=== PATIENT | male | born 1960 | race Caucasian/White ===

== ENCOUNTER 2016-10-17 09:13 | Emergency (ER) | payer SELFPAY ==
[~2016-10-17] VITALS: Ht 170.2 cm; Wt 102.0 kg
[2016-10-17 09:16] VITALS: BP 194/97; PULSE 70; RESP 17; TEMP 97.8; O2SAT 99
--- NOTE | 2016-10-17 09:41 | PD ---
HPI Chief Complaint: Back/ Neck Pain or Injury Time Seen by Provider: 09:23 Travel History International Travel<30 days: No Contact w/Intl Traveler<30days: No Traveled to known affect area: No History of Present Illness HPI This patient complains of back pain. He has right mid muscular back pain and says he can feel the muscle spasming at times. Duration is 2 days. He says it started when he lifted his girlfriend. There is been no injury or trauma to it. No urinary condoms or retention or neurologic complaint. He says that he drinks 6 beers daily. He occasionally doses off in the bed while in the middle of conversation. He denies drinking today. He denies sedating medication. He denies any drug use. Symptom severity is mild to moderate. PFSH Past Medical History Medical History: Denies Significant Hx Diminished Hearing: No Tetanus Vaccination: > 5 Years Influenza Vaccination: No Past Surgical History Other Surgery: Yes (EYES) Social History Alcohol Use: Yes (3-4 DAYS WEEKLY) Tobacco Use: Yes (1 PPD) Substance Use: No Allergies-Medications (Allergen,Severity, Reaction): Coded Allergies: Bee Sting (Verified Allergy, Severe, Anaphylaxis, 10/17/16) Penicillin (Verified Allergy, Unknown, 10/17/16) Reported Meds & Prescriptions Reported Meds & Active Scripts Active No Active Prescriptions or Reported Medications Review of Systems General / Constitutional: No: Fever HENT: No: Headaches Cardiovascular: No: Chest Pain or Discomfort Respiratory: No: Cough Physical Exam Narrative GASTROINTESTINAL: Abdomen soft, non-tender, nondistended. Positive bowel sounds. No hepato-splenomegaly, or palpable masses. No guarding. SKIN: Inspection shows no rash or ulcers. Palpation shows no induration or nodules. NEUROLOGICAL: Awake but drowsy. Pupils are equal round and reactive. Motor and sensory grossly within normal limits. Five out of 5 muscle strength in all muscle groups. Understandable speech. Back: No midline tenderness. No visible spasm but there is some muscle tenderness in the right mid act and a palpable knot there Data Data Last Documented VS Vital Signs Date Time Temp Pulse Resp B/P Pulse Ox O2 Delivery O2 Flow Rate FiO2 10/17/16 09:16 97.8 70 17 194/97 99 Room Air MDM Medical Decision Making Medical Screen Exam Complete: Yes Emergency Medical Condition: Yes Medical Record Reviewed: Yes Differential Diagnosis Back strain, sciatica, pinched nerve Narrative Course I have reviewed the patient's electronic medical record. Patient has never been to the ER before Patient does not have an objective neurologic deficit He seems under the influence of something He admits to alcohol abuse There is no mechanism of injury to suggest x-ray would be useful. His back pain seems definitely muscular in origin. Blood pressure is 164/95 I advised him to check and recorded daily and follow up with primary care Suggested [facility] alcohol rehabilitation counseling services Going to write him some Norflex to use as needed and I did warn her about sedation and using it with alcohol. I think this one is less sedating than other muscle relaxers. We'll mobilize prior to discharge Diagnosis Primary Impression: Spasm of back muscles Additional Impressions: Elevated blood pressure reading Heavy alcohol use Additional Instructions: The patient was advised to follow up with their physician and return if they worsen. The patient was warned about potential sedation for the medications they will receive on prescription. Check and record blood pressure daily Limit alcohol consumption Consider [facility] alcohol rehabilitation services Med/Other Pt SpecificInfo: Prescription(s) given Scripts No Active Prescriptions or Reported Meds Disposition: 01 DISCHARGE HOME Condition: Stable Albert Mai MD Oct 17, 2016 09:41
[2016-10-17] MEDS ORDERED: ORPH100T99 PO (09:42)
[2016-10-17 10:04] VITALS: BP 164/95
== END 2016-10-17 10:09 | disposition home or self-care (01) ==
LOC: PHED 09:13
DX: M62.830 Muscle spasm of back (principal); R03.0 Elevated blood-pressure reading, without diagnosis of hypertension; F17.210 Nicotine dependence, cigarettes, uncomplicated; F10.10 Alcohol abuse, uncomplicated; X50.0XXA Overexertion from strenuous movement or load, initial encounter; X50.9XXA Other and unspecified overexertion or strenuous movements or postures, initial encounter; Y93.9 Activity, unspecified; Y92.9 Unspecified place or not applicable; Y99.9 Unspecified external cause status
CPT/HCPCS: 99283

== ENCOUNTER 2017-03-04 09:04 | Emergency (ER) | payer SELFPAY ==
[~2017-03-04] VITALS: Ht 170.2 cm; Wt 98.1 kg
[~2017-03-04 09:04] MED LIST: ORPH100T99 PO
[2017-03-04 09:09] VITALS: BP_SYST 160; BP_SYST 180; BP_DIAS 122; BP_DIAS 125; PULSE 90; RESP 16; TEMP 98.3; O2SAT 96
[2017-03-04] MEDS ORDERED: ACETAMINOPHEN/HYDROcodone 325 MG/5 MG TAB PO ONE (09:30)
--- NOTE | 2017-03-04 09:55 | PD ---
HPI Chief Complaint: Injury Time Seen by Provider: 09:19 Travel History International Travel<30 days: No Contact w/Intl Traveler<30days: No Traveled to known affect area: No History of Present Illness HPI Is a 56-year-old male presents to the emergency department complaining of right ankle pain. It is more the medial right ankle. Nonradiating. Been persistent and constant. He states he slipped on wet tile last night. [place] like his right ankle rolled with forced inversion. He's had pain and swelling since then. Unable to really bear weight. No past medical history. No meds. No history of previous injuries. No other complaints. History Past Medical History Medical History: Denies Significant Hx Tetanus Vaccination: Unknown Influenza Vaccination: No Social History Alcohol Use: Yes (occasional) Tobacco Use: Yes (1 PPD) Allergies-Medications (Allergen,Severity, Reaction): Coded Allergies: Bee Sting (Verified Allergy, Severe, Anaphylaxis, 03/04/17) Penicillin (Verified Allergy, Unknown, 03/04/17) Reported Meds & Prescriptions Reported Meds & Active Scripts Active No Active Prescriptions or Reported Medications Review of Systems Except as stated in HPI: all other systems reviewed are Neg Physical Exam Narrative GENERAL: 56-year-old man, generally well-appearing, no acute distress. SKIN: Warm and dry. CARDIOVASCULAR: Warm and well perfused. RESPIRATORY: Normal rate and effort. MUSCULOSKELETAL: Focused examination of the right lower extremity reveals pain and swelling about the entire the right ankle. Significant pain and tenderness present at the medial malleolus. Pain with any attempted range of motion. The foot itself is also little bit swollen but there is no tenderness over the dorsum of the foot or the distal foot. Foot warm and well-perfused. Sensations intact. Good pulses. No pain on the proximal calf, no evidence of Maisonneuve injury or high ankle sprain on exam. NEUROLOGICAL: Awake and alert. No gross deficits. Data Data Last Documented VS Vital Signs Date Time Temp Pulse Resp B/P Pulse Ox O2 Delivery O2 Flow Rate FiO2 03/04/17 09:37 16 03/04/17 09:09 98.3 90 180/125 96 160/122 Orders Ankle, Complete (Prn2qfl) (03/04/17 ) Tibia/Fibula (Ap/Lat) (03/04/17 ) Acetamin-Hydrocod 325-5 Mg (Gays 5-325 (03/04/17 09:30) Support Splint (03/04/17 10:29) Fiberglass Short Leg Splint Ad (03/04/17 ) Fiberglass Sugartong Sp Ad Sl (03/04/17 ) [facility] Medical Decision Making Medical Screen Exam Complete: Yes Emergency Medical Condition: Yes Interpretation(s) My review of right ankle x-ray: Fracture of the distal fibula, medial malleolus , posterior malleolus. Differential Diagnosis Slip and fall, ankle injury, fracture, strain or sprain, other Narrative Course Medical decision making 56-year-old man with slip and fall, severe right ankle pain and swelling, x-ray shows distal fibular, as well as medial malleoli or fracture. Discussed with Maximo, for Dr. Owens with orthopedics, states the patient is comfortable, can be followed up as outpatient. Will likely need surgery. Diagnosis Primary Impression: Closed right ankle fracture Referrals: Masoud Owens MD 3 days Additional Instructions: Keep leg elevated above your heart to reduce swelling. Do not bear weight on your right leg. Follow-up with Dr. Owens this week for further evaluation. You will likely need surgery. Use crutches as directed. Take Lortab as needed for pain. Do not drink alcohol while taking Lortab. Med/Other Pt SpecificInfo: Prescription(s) given Scripts Hydrocodone-Acetaminophen (Lortab)5-325 Mg Tab1-2 Tab PO Q6H PRN (PAIN) #30 TAB Prov:Michael Jovel MD 03/04/17 Disposition: 01 DISCHARGE HOME Condition: Stable Michael Jovel MD Mar 04, 2017 09:55
--- NOTE | 2017-03-04 10:39 | RADHPO ---
EXAM DATE/TIME: 03/04/2017 09:51 [facility] COMPARISON: No previous studies available for comparison. INDICATIONS : Right medial ankle pain, slipped and fell MEDICAL HISTORY : None. SURGICAL HISTORY : None. ENCOUNTER: Initial ACUITY: 1 day PAIN SCORE: 8/10 LOCATION: Right medial ankle FINDINGS: There is a fracture of the distal tibia at the medial malleolus. Distal fibula is fractured, above t he tibial plafond. Talus is intact. There is a fracture to the posterior lip of the tibia. Proximal femur is intact. CONCLUSION: Trimalleolar fracture of the tibia and fibula. Talus is intact. I cannot entirely exclude a small intraarticular fragment medial tibiotalar joint. Ruiz Napoles MD FACR on March 04, 2017 at 10:21 Board Certified Radiologist. This report was verified electronically.
[2017-03-04] MEDS ORDERED: HYDR-3533 PO (10:41)
--- NOTE | 2017-03-04 10:52 | RADHPO ---
EXAM DATE/TIME: 03/04/2017 09:37 [facility] COMPARISON: No previous studies available for comparison. INDICATIONS : Right medial ankle pain, slipped and fell MEDICAL HISTORY : None SURGICAL HISTORY : None ENCOUNTER: Initial ACUITY: 1 day PAIN SCORE: 8/10 LOCATION: Right ankle FINDINGS: Again seen is the medial malleolus fracture and severely comminuted distal fibular fracture that exte nds above the tibial plafond. There is also a fracture of the posterior lip of the tibial plafond. There is widening of the anterior tibiotalar joint suggesting ligamentous disruption. Small intraarticular free fragment cannot be entirely excluded on the medial side of the ankle. CONCLUSION: Fracture as described above. Ruiz Napoles MD FACR on March 04, 2017 at 10:38 Board Certified Radiologist. This report was verified electronically.
[2017-03-04 10:59] VITALS: BP 162/101; PULSE 79; RESP 16; O2SAT 95
[2017-03-29] MEDS ORDERED: HYDR-3288 PO (07:16)
== END 2017-03-04 11:12 | disposition home or self-care (01) ==
LOC: PHED 09:04
DX: S82.851A Displaced trimalleolar fracture of right lower leg, initial encounter for closed fracture (principal); W01.0XXA Fall on same level from slipping, tripping and stumbling without subsequent striking against object, initial encounter; Y93.9 Activity, unspecified; Y92.9 Unspecified place or not applicable; Y99.8 Other external cause status
CPT/HCPCS: 29515; 73590; 73610; 99283; E0113

== ENCOUNTER → 2017-03-29 | Day surgery (SDC) | payer SELFPAY ==
[~2017-03-29] VITALS: Ht 170.2 cm; Wt 94.5 kg
[~2017-03-29] MED LIST changes: +*morphine SULFATE 8 MG/ML PERIprocedure ONLY ONE; +ACETAMINOPHEN/HYDROcodone 325 MG/7.5 MG TAB PO PRN; +CHLORHEXIDINE GLUCONATE 2 % 1 PACK (2 CLOTHS) TOPICAL PRN; +CLINDAMYCIN INJ 900 MG in SODIUM CHLORIDE 0.9% INJ 100 ML IV SCH; +CLINDAMYCIN PHOS 900 MG/6 ML VIAL ONE; +DEXAMETHASONE SOD PHOS 4 MG/ML VIAL ONE; +DO NOT ADM ANY ANTICOAGULANT DRUGS PRN; +FAMOTIDINE 20 MG/2 ML VIAL ONE; +GENTAMICIN SULFATE 80 MG/2 ML VIAL IRRIGATION ONE; +HYDR-3288 PO; +HYDR-3533 PO; +INSULIN HUMAN REGULAR 1,000 UNITS/10 ML VIAL SQ PRN; +LACTATED RINGER'S 1000 ML IV PRN; +METOPROLOL TARTRATE 25 MG TAB PO PRN; +MIDAZOLAM HCL 2 MG/2 ML VIAL ONE; +MORPHINE SULFATE 4 MG/ML INJ IV PUSH PRN; +ONDANSETRON HCL 4 MG/2 ML VIAL IV PUSH ONE; +ONDANSETRON HCL 4 MG/2 ML VIAL IVP PRN; -ORPH100T99 PO; +POVIDONE IODINE 5% (ANTISEPSIS KIT) 4 APPLICATIONS EACH NARE PRN; +PROPOFOL 200 MG/20 ML AMP IV ONE; +Post-op Orders (for Pharmacy) MISC XX ONE; +SODIUM CHLORID 0.9% 500 ML IV PRN; +SODIUM CHLORIDE 0.9% INJ 100 ML ONE; +VANCOMYCIN HCL 1000 MG VIAL OTHER ONE; +fentaNYL CITRATE 250 MCG/5 ML AMP ONE
[2017-03-29 05:56] VITALS: BP 163/103; PULSE 78; RESP 18; TEMP 98.6; O2SAT 95
--- NOTE | 2017-03-29 07:16 | EKG ---
Date Performed: 03/29/2017 Time Performed: 06:30:16 PTAGE: 56 years EKG: SINUS BRADYCARDIA BORDERLINE ECG NO PREVIOUS TRACING DOCTOR: Aba Ricci Interpretating Date/Time 03/29/2017 07:14:52
--- NOTE | 2017-03-29 08:52 | PD.OP ---
cc: Masoud Owens MD Operative Report Date of Surgery: Mar 29, 2017 Preoperative Diagnosis: Displaced right distal tibia & fibula fractures Postoperative Diagnosis: Procedure: Open reduction internal fixation right distal tibia and fibula fractures Anesthesia: Gen. Surgeon: Maosud Owens Aoc Director Intelligence Officer(s): REBEKAH Ponce PA-C The surgical procedure was assisted by my physician assistant case manager. My P.A. presence was necessary throughout this case for the manipulation and positioning of the surgical extremity. My P.A. was assisting me throughout the duration of this procedure. The skill set of a physician assistant case manager was medically necessary to complete this procedure. During the surgical case the surgical training specialist was working at the back table and the physician assistant case manager was directly assisting me. Operation and Findings: Patient was seen and evaluated preoperatively and found to have a displaced right distal tibia and fibula fracture. Informed consent was obtained after a detailed discussion of risk and benefits of surgery. The operative site was marked. Patient was brought to the OR, placed on the OR table, and given IV sedation and general endotracheal anesthesia. IV antibiotics were given preoperatively. A timeout procedure was performed. The left leg was prepped with alcohol followed by Hibiclens and draped in the usual sterile fashion. Attention was turned towards the distal fibula. A 5 inch incision was made over the distal fibula. The subcutaneous tissue was dissected with Bovie. The fracture site was visualized. The fracture site was cleaned with curets. His injury was approximately 4 weeks ago. There was significant fracture callus formation present. The fracture was mobilized. The fracture was now reduced. K-wires were used to h old provisional fixation. A Synthes one third tubular plate was selected. The plate was provisionally held to bone with K-wires. 3.5 cortical screws were used to compress the plate to bone. Multiple screws were placed above and below the fracture. Next attention was turned towards the medial malleolus. The medial malleolus supposed through a 3 cm incision. Saphenous vein was retracted. Fracture was visualized. Fracture was cleaned with curettes. Fracture was gently mobilized. Fracture was now reduced and keyed into anatomic alignment. K wires were used to hold provisional fixation. 2 guidepins for the 4.0 cannulated screws were placed in a retrograde fashion across the fracture. Fluoroscopy was used to confirm guidepin placement. Cannulated drill was placed over the guidepin. 2 appropriate length screws were now placed. Good compression was applied. Fluoroscopy confirmed well aligned fracture with well- placed hardware. Next attention was turned towards the anterior lateral distal tibia. Soft tissue was retracted anteriorly. Care was taken to avoid injury to neurovascular structures. The anterolateral fragment of articular surface was mobilized. There was fracture callus formation. The fracture fragment was carefully reduced. K wires were used to hold provisional fixation. Fluoroscopy confirmed well aligned fracture. A Synthes 2.7 plate was contoured to fit the anterolateral tibia. Plate was provisionally held the bone with K wires. 2.7 cortical screws were used compress plate to bone. Multiple screws were placed above and below fracture. Next, attention was turned to the syndesmosis. The syndesmosis was stressed. There was clear widening of the syndesmosis with external rotation of the ankle. The syndesmosis was now held in a reduced position with the ankle in neutral position. Two Synthes 4.0 cortical screws were now placed through the fibula plate into the tibia. Fluoroscopy confirmed appropriate screw placement with well-aligned syndesmosis. Incisions were thoroughly irrigated. The subcutaneous tissue was closed with 3-0 PDS and the skin was closed with 3-0 nylon. Sterile dressings were applied. A well molded well-padded splint was applied. The patient was transferred to Recovery in stable condition. Needle and sponge counts were correct. Masoud Owens MD Mar 29, 2017 08:52
[2017-03-29 11:50] VITALS: BP 135/73; PULSE 57; RESP 16; TEMP 97.9; O2SAT 96
--- NOTE | 2017-03-29 15:31 | RADRPT ---
EXAM DATE/TIME: 03/29/2017 08:38 [facility] COMPARISON: No previous studies available for comparison. INDICATIONS : Open reduction internal fixation right ankle. MEDICAL HISTORY : None. SURGICAL HISTORY : None. ENCOUNTER: Initial ACUITY: 1 day PAIN SCORE: Non-responsive. LOCATION: Right Ankle. FINDINGS: Plate is seen bridging the fibular fracture. Plate and screws are seen bridging the tibial fracture. Alignment is anatomic. CONCLUSION: Anatomic alignment. Ruiz Napoles MD FACR on March 29, 2017 at 15:19 Board Certified Radiologist. This report was verified electronically.
== END | disposition home or self-care (01) ==
LOC: HSDC 05:12
PROVIDERS: ATTEND Orthopaedic Surgery Orthopaedic Trauma
DX: S82.401A Unspecified fracture of shaft of right fibula, initial encounter for closed fracture (principal); S82.201A Unspecified fracture of shaft of right tibia, initial encounter for closed fracture; R00.1 Bradycardia, unspecified
CPT/HCPCS: 01480; 27828; 73600; 76000; 93005; 97163; C1713; G8987; G8988; J1100; J1580; J2250; J2270; J2405; J3010; J3370; J7120

== ENCOUNTER 2017-06-27 09:46 | Emergency (ER) | payer SELFPAY ==
[~2017-06-27] VITALS: Ht 170.2 cm; Wt 89.0 kg
[~2017-06-27 09:46] MED LIST changes: -*morphine SULFATE 8 MG/ML PERIprocedure ONLY ONE; -ACETAMINOPHEN/HYDROcodone 325 MG/7.5 MG TAB PO PRN; -CHLORHEXIDINE GLUCONATE 2 % 1 PACK (2 CLOTHS) TOPICAL PRN; -CLINDAMYCIN INJ 900 MG in SODIUM CHLORIDE 0.9% INJ 100 ML IV SCH; -CLINDAMYCIN PHOS 900 MG/6 ML VIAL ONE; -DEXAMETHASONE SOD PHOS 4 MG/ML VIAL ONE; -DO NOT ADM ANY ANTICOAGULANT DRUGS PRN; -FAMOTIDINE 20 MG/2 ML VIAL ONE; -GENTAMICIN SULFATE 80 MG/2 ML VIAL IRRIGATION ONE; -HYDR-3533 PO; -INSULIN HUMAN REGULAR 1,000 UNITS/10 ML VIAL SQ PRN; -LACTATED RINGER'S 1000 ML IV PRN; -METOPROLOL TARTRATE 25 MG TAB PO PRN; -MIDAZOLAM HCL 2 MG/2 ML VIAL ONE; -MORPHINE SULFATE 4 MG/ML INJ IV PUSH PRN; -ONDANSETRON HCL 4 MG/2 ML VIAL IV PUSH ONE; -ONDANSETRON HCL 4 MG/2 ML VIAL IVP PRN; -POVIDONE IODINE 5% (ANTISEPSIS KIT) 4 APPLICATIONS EACH NARE PRN; -PROPOFOL 200 MG/20 ML AMP IV ONE; -Post-op Orders (for Pharmacy) MISC XX ONE; -SODIUM CHLORID 0.9% 500 ML IV PRN; -SODIUM CHLORIDE 0.9% INJ 100 ML ONE; -VANCOMYCIN HCL 1000 MG VIAL OTHER ONE; -fentaNYL CITRATE 250 MCG/5 ML AMP ONE
[2017-06-27] MEDS ORDERED: GADODIAMIDE PF 287 MG/ML 20 ML VIAL (for RAD MRI) IVCONTRAST ONE (09:47)
[2017-06-27 10:03] VITALS: BP 168/103; PULSE 75; RESP 16; TEMP 97.9; O2SAT 97
--- NOTE | 2017-06-27 10:22 | PD ---
HPI Chief Complaint: Eye Problems/Injury Time Seen by Provider: 09:54 Travel History International Travel<30 days: No Contact w/Intl Traveler<30days: No Traveled to known affect area: No History of Present Illness HPI The patient is a 56-year-old male who presents to the emergency department for loss of vision of the right eye. The patient notes a history of difficulty with vision of the left eye, does wear glasses, however, normally has decent vision of the right eye. The patient states he started to lose vision of the right eye yesterday. The patient states the vision of the right eye was "foggy "and then he started to see "dark hairs" when he would lay backwards or sit forward. The patient felt like there was a "glob of blood "that would creep down the right eye when he would lay backwards. He denies any history of previous retinal detachments. He also complains of numbness and tingling to the top of the head which is been intermittent and chronic. The patient does not currently have a primary physician or an supervisor fishing. PFSH Past Medical History Diminished Hearing: No Medical other: Yes (LEFT EYE LEGALLY BLIND) Immunizations Current: Yes Tetanus Vaccination: > 5 Years Influenza Vaccination: No Past Surgical History Body Medical Devices: wires and screws in left knee Other Surgery: Yes (EYES) Social History Alcohol Use: No (FORMER ) Tobacco Use: Yes (1 PPD) Substance Use: No Allergies-Medications (Allergen,Severity, Reaction): Coded Allergies: bee venom protein (honey bee) (Unverified Allergy, Severe, Anaphylaxis, ) penicillin G (Unverified Allergy, Unknown, 06/27/17) Reported Meds & Prescriptions Reported Meds & Active Scripts Active No Active Prescriptions or Reported Medications Review of Systems Except as stated in HPI: all other systems reviewed are Neg Eyes: Positive: Blurred Vision, Visual changes, Blindness, No: Photophobia, Drainage, Redness, Foreign Body Sensation, Pain HENT: No: Headaches, Lightheadedness Cardiovascular: No: Chest Pain or Discomfort Respiratory: No: Shortness of Breath Gastrointestinal: No: Nausea, Vomiting, Abdominal Pain Physical Exam Narrative GENERAL: Awake, alert, nontoxic-appearing 56-year-old male who appears his stated age and is in no acute respiratory distress. SKIN: Focused skin assessment warm/dry. HEAD: Atraumatic. Normocephalic. EYES: Pupils equal and round. Pupils are 4 mm bilateral and reactive. The patient is able to see fingers at a distance of 2 feet without difficulty. Extraocular muscles are intact. Left funduscopic examination is unremarkable. Funduscopic examination reveals milky white appearance the central aspect of the retina. After dilation the patient's right eye the funduscopic examination was repeated, there does appear to be a large white milky type central lesion that extends from the superior to the inferior aspect. The lateral aspect is erythematous. ENT: No nasal bleeding or discharge. Mucous membranes pink and moist. NECK: Trachea midline. No JVD. CARDIOVASCULAR: Regular rate and rhythm. No murmur appreciated. RESPIRATORY: No accessory muscle use. Clear to auscultation. Breath sounds equal bilaterally. GASTROINTESTINAL: Abdomen soft, non-tender, nondistended. MUSCULOSKELETAL: No obvious deformities. No clubbing. No cyanosis. No edema. NEUROLOGICAL: Awake and alert. No obvious cranial nerve deficits. Motor grossly within normal limits. Normal speech. Nonfocal. Oriented 4. PSYCHIATRIC: Appropriate mood and affect; insight and judgment normal. Data Data Last Documented VS Vital Signs Date Time Temp Pulse Resp B/P (MAP) Pulse Ox O2 Delivery O2 Flow Rate FiO2 06/27/17 12:31 54 16 168/85 (112) 97 Room Air 06/27/17 10:03 97.9 Orders Orders Mri Brain W/O Contrast (06/27/17 ) Mri Orbits W&W/O Contrast (06/27/17 ) Complete Blood Count With Diff (06/27/17 10:16) Basic Metabolic Panel (Bmp) (06/27/17 10:16) Act Partial Throm Time (Ptt) (06/27/17 10:16) Prothrombin Time / Inr (Pt) (06/27/17 10:16) Atropine 1% Opth Soln (Isopto Atropine 1 (06/27/17 10:45) Gadodiamide Pf Inj (Omniscan Pf Inj) (06/27/17 09:47) Labs Laboratory Tests Test 06/27/17 10:20 White Blood Count 6.7 TH/MM3 Red Blood Count 4.73 MIL/MM3 Hemoglobin 14.5 GM/DL Hematocrit 43.4 % Mean Corpuscular Volume 91.8 FL Mean Corpuscular Hemoglobin 30.7 PG Mean Corpuscular Hemoglobin Concent 33.4 % Red Cell Distribution Width 13.0 % Platelet Count 178 TH/MM3 Mean Platelet Volume 8.6 FL Neutrophils (%) (Auto) 71.2 % Lymphocytes (%) (Auto) 22.4 % Monocytes (%) (Auto) 4.3 % Eosinophils (%) (Auto) 1.2 % Basophils (%) (Auto) 0.9 % Neutrophils # (Auto) 4.7 TH/MM3 Lymphocytes # (Auto) 1.5 TH/MM3 Monocytes # (Auto) 0.3 TH/MM3 Eosinophils # (Auto) 0.1 TH/MM3 Basophils # (Auto) 0.1 TH/MM3 CBC Comment DIFF FINAL Differential Comment Prothrombin Time 10.7 SEC Prothromb Time International Ratio 1.0 RATIO Activated Partial Thromboplast Time 26.6 SEC Blood Urea Nitrogen 9 MG/DL Creatinine 0.79 MG/DL Random Glucose 93 MG/DL Calcium Level 9.0 MG/DL Sodium Level 140 MEQ/L Potassium Level 3.9 MEQ/L Chloride Level 104 MEQ/L Carbon Dioxide Level 30.8 MEQ/L Anion Gap 5 MEQ/L Estimat Glomerular Filtration Rate 102 ML/MIN MDM Medical Decision Making Medical Screen Exam Complete: Yes Emergency Medical Condition: Yes Medical Record Reviewed: Yes Interpretation(s) Last Impressions Orbit MRI 06/27/17 0000 Signed Impressions: Service Date/Time: May 11:44 - CONCLUSION: 1. Negative examination. Jayjay Napoles MD Brain MRI 06/27/17 0000 Signed Impressions: Service Date/Time: May 11:44 - CONCLUSION: 1. Small amount of fluid within the ethmoid air cells. 2. Scattered areas of increased T2 signal the white matter consistent with mild microvascular ischemic demyelinative change. 3. No findings to indicate acute cortical infarct identified. Jayjay Napoles MD Laboratory Tests Test 06/27/17 10:20 White Blood Count 6.7 TH/MM3 Red Blood Count 4.73 MIL/MM3 Hemoglobin 14.5 GM/DL Hematocrit 43.4 % Mean Corpuscular Volume 91.8 FL Mean Corpuscular Hemoglobin 30.7 PG Mean Corpuscular Hemoglobin Concent 33.4 % Red Cell Distribution Width 13.0 % Platelet Count 178 TH/MM3 Mean Platelet Volume 8.6 FL Neutrophils (%) (Auto) 71.2 % Lymphocytes (%) (Auto) 22.4 % Monocytes (%) (Auto) 4.3 % Eosinophils (%) (Auto) 1.2 % Basophils (%) (Auto) 0.9 % Neutrophils # (Auto) 4.7 TH/MM3 Lymphocytes # (Auto) 1.5 TH/MM3 Monocytes # (Auto) 0.3 TH/MM3 Eosinophils # (Auto) 0.1 TH/MM3 Basophils # (Auto) 0.1 TH/MM3 CBC Comment DIFF FINAL Differential Comment Prothrombin Time 10.7 SEC Prothromb Time International Ratio 1.0 RATIO Activated Partial Thromboplast Time 26.6 SEC Blood Urea Nitrogen 9 MG/DL Creatinine 0.79 MG/DL Random Glucose 93 MG/DL Calcium Level 9.0 MG/DL Sodium Level 140 MEQ/L Potassium Level 3.9 MEQ/L Chloride Level 104 MEQ/L Carbon Dioxide Level 30.8 MEQ/L Anion Gap 5 MEQ/L Estimat Glomerular Filtration Rate 102 ML/MIN Differential Diagnosis Differential diagnoses includes retinal detachment, amaurosis fugax, lens detachment, central artery occlusion, central retinal vein occlusion. Narrative Course IV was established, labs are drawn and sent, and the patient was placed on cardiac telemetry monitoring and continuous pulse oximetry monitoring. MRI of the orbits and the brain were obtained. There appeared to be an abnormality on funduscopic examination with the patient had a milky like appearance to the central aspect of the retina, therefore, one drop of atropine was applied to the right eye. Funduscopic examination was repeated which continues to reveal the milky-type appearance to the central retina with erythema on the lateral aspect. There was no supervisor fishing economic development coordinator for [facility]. I did discuss the patient with the supervisor fishing, Dr. Gan who is located in [place], but was not economic development coordinator. He was headed to the airport in [place], however, did advise me to call [phone] to see if the patient could be seen in the office today. I did call the office and spoke with Rossana who advised us to send the demographics to fax number [phone]. She did advise the patient would need to pay via [employer] or [employer] upon arrival if he wanted to be evaluated as he does not have insurance and they are not on-call. Therefore, I had a discussion with the patient when he returned from [facility] in regards to see an supervisor fishing in [place] 1 PM, however, he would be responsible for payment. The patient does not believe he would be able to afford to see the supervisor fishing. I then offered to call several different transfer centers including [place], [place], and [place] to evaluate if there supervisor fishing to be able to evaluate the patient. However, the patient initially did not want to be transferred to another center. I advised the patient to think about options as he may develop blindness out of the right eye or worsening vision if she is not seen by an supervisor fishing in a timely manner. The patient states he would like to be discharged and follow-up with ophthalmology as an outpatient. I have advised them to follow-up with ophthalmology as soon as possible. He will be provided a copy of his MRI results at discharge. Diagnosis Primary Impression: Central retinal artery occlusion of right eye Additional Instructions: Follow-up with ophthalmology. Please provide a patient a copy of his MRI results at discharge. Return if symptoms worsen or progress. Med/Other Pt SpecificInfo: No Change to Meds Scripts No Active Prescriptions or Reported Meds Disposition: 01 DISCHARGE HOME Condition: Stable Jeremias Malone MD Jun 27, 2017 10:22
[2017-06-27 10:29] LABS: AUTOMATED NEUTROPHIL # 4.7 TH/MM3 (1.8-7.7); BASOPHIL # 0.1 TH/MM3 (0-0.2); BASOPHIL % 0.9 % (0.0-2.0); EOSINOPHIL # 0.1 TH/MM3 (0-0.4); EOSINOPHIL % 1.2 % (0.0-4.0); HEMATOCRIT 43.4 % (39.0-51.0); HEMO FLAGS DIFF FINAL; LYMPH % 22.4 % (9.0-44.0); LYMPHOCYTE # 1.5 TH/MM3 (1.0-4.8); MEAN CELL VOLUME 91.8 FL (80.0-100.0); MEAN CORPUSCULAR HEMOGLOBIN 30.7 PG (27.0-34.0); MEAN CORPUSCULAR HGB CONC 33.4 % (32.0-36.0); MONO % 4.3 % (0.0-8.0); NEUT % 71.2 % (16.0-70.0); PLATELET COUNT 178 TH/MM3 (150-450); RED BLOOD COUNT 4.73 MIL/MM3 (4.50-5.90); WHITE BLOOD COUNT 6.7 TH/MM3 (4.0-11.0)
[2017-06-27] MEDS ORDERED: ATROPINE SULFATE 1% OPHT SOLN 2 ML BTL RIGHT EYE ONE (10:30)
[2017-06-27 10:41] LABS: POTASSIUM 3.9 MEQ/L (3.5-5.1)
[2017-06-27 10:44] LABS: BICARBONATE 30.8 MEQ/L (21.0-32.0)
[2017-06-27 10:45] LABS: APTT (PATIENT) 26.6 SEC (24.3-30.1); PROTHROMBIN TIME - PATIENT 10.7 SEC (9.8-11.6)
[2017-06-27] MEDS ORDERED: ATROPINE SULFATE 1% OPHT SOLN 5 ML BTL RIGHT EYE ONE (10:45)
[2017-06-27 12:31] VITALS: BP 168/85; PULSE 54; RESP 16; O2SAT 97
--- NOTE | 2017-06-27 13:14 | RADRPT ---
EXAM DATE/TIME: 06/27/2017 11:44 [facility] COMPARISON: No previous studies available for comparison. INDICATIONS : CVA. Right eye floaters and top of head tingling. MEDICAL HISTORY : Blind in left eye. SURGICAL HISTORY : Right eye surgery to fix cross eye and right leg. ENCOUNTER: Initial ACUITY: 3 day PAIN SCORE: 0/10 LOCATION: Head. TECHNIQUE: Multiplanar, multisequence MRI of the brain was performed without contrast. FINDINGS: CEREBRUM: The ventricles are normal for age. No evidence of midline shift, mass lesion, hemorrhage or acute in farction. No extraaxial fluid collections are seen. The pituitary gland and suprasellar cistern are normal in configuration. WHITE MATTER: There are some scattered areas of increased T2 signal most consistent with mild microvascular ischemi c demyelinative change. No significant signal abnormalities are seen in the white matter. POSTERIOR FOSSA: The cerebellum and brainstem are intact. The 4th ventricle is midline. The cerebellopontine angle is unremarkable. The cerebellar tonsils are normal in position. DIFFUSION IMAGING: No focal areas of restricted diffusion are seen. No evidence of acute infarction. EXTRACRANIAL: The orbits appear intact. Dedicated imaging through the orbits is pending. There is a small amount of fluid within the ethmoid air cells.. CONCLUSION: 1. Small amount of fluid within the ethmoid air cells. 2. Scattered areas of increased T2 signal the white matter consistent with mild microvascular ischemi c demyelinative change. 3. No findings to indicate acute cortical infarct identified. Jayjay Napoles MD on June 27, 2017 at 13:10 Board Certified Radiologist. This report was verified electronically.
--- NOTE | 2017-06-27 13:20 | RADRPT ---
EXAM DATE/TIME: 06/27/2017 11:44 [facility] COMPARISON: No previous studies available for comparison. INDICATIONS : Right eye vision trouble, seeing floaters and blurred vision. CONTRAST: 17 cc Omniscan (gadodiamide) IV MEDICAL HISTORY : Blind in left eye. SURGICAL HISTORY : Right eye surgery for cross eye and right leg surgery. ENCOUNTER: Initial ACUITY: 3 day PAIN SCORE: 0/10 LOCATION: Head. TECHNIQUE: Multiplanar, multisequence MRI examination was performed. FINDINGS: PRESEPTAL: The preseptal soft tissues are normal thickness. GLOBES: Normal shape without wall thickening. The lens is grossly intact. EXTRAOCULAR MUSCLES: Symmetric and normal thickness. ORBITAL ENCINAS: Intact. The greater wing of the sphenoid is intact. OPTIC NERVES: Normal size. The optic canal is not enlarged. The retroconal fat is normal in appearance. LACRIMAL GLANDS: No evidence of mass. RETROAPICAL REGION: The optic chiasm is grossly intact. The visualized portion of the cavernous sinus and brainstem is i ntact. CONCLUSION: 1. Negative examination. Jayjay Napoles MD on June 27, 2017 at 13:16 Board Certified Radiologist. This report was verified electronically.
== END 2017-06-27 14:24 | disposition home or self-care (01) ==
LOC: PHED 09:46
DX: H34.11 Central retinal artery occlusion, right eye (principal); F17.200 Nicotine dependence, unspecified, uncomplicated
CPT/HCPCS: 70543; 70551; 80048; 85025; 85610; 85730; 99285; A9579

== ENCOUNTER 2017-07-18 11:34 | Observation (INO) | payer SELFPAY ==
[~2017-07-18] VITALS: Ht 172.7 cm; Wt 86.0 kg
[2017-07-18 11:36] VITALS: BP 182/97; PULSE 78; RESP 14; TEMP 97.8; O2SAT 97
--- NOTE | 2017-07-18 13:31 | PD ---
HPI Chief Complaint: Eye Problems/Injury Time Seen by Provider: 13:24 Travel History International Travel<30 days: No Contact w/Intl Traveler<30days: No Traveled to known affect area: No History of Present Illness HPI 86-year-old male presents to the emergency department, sent by Dr. Burgess, director of clinical services, for possible detached retina and surgery today. He's been having visual disturbances of the right eye the past 3 weeks. Reports blurry vision and seeing shadows. He was seen by Dr. Burgess this morning in his office and was told to come to the emergency department. Denies eye pain. Denies fever, vomiting. His pupils are dilated from his examination by Dr. Burgess this morning. No known aggravating or relieving factors. Has no other medical complaints. Allergies to bee stings and penicillin. No other modifying factors or associated signs and symptoms. PFSH Past Medical History Diminished Hearing: No Immunizations Current: Yes Past Surgical History Body Medical Devices: wires and screws in left knee Other Surgery: Yes (EYES) Social History Alcohol Use: No (FORMER ) Tobacco Use: Yes (1 PPD) Substance Use: No Allergies-Medications (Allergen,Severity, Reaction): Coded Allergies: bee venom protein (honey bee) (Unverified Allergy, Severe, Anaphylaxis, ) penicillin G (Unverified Allergy, Unknown, 06/27/17) Reported Meds & Prescriptions Reported Meds & Active Scripts Active No Active Prescriptions or Reported Medications Review of Systems Except as stated in HPI: all other systems reviewed are Neg Physical Exam Narrative GENERAL: Well-nourished, well-developed male patient, in no acute distress SKIN: Warm and dry. HEAD: Atraumatic. Normocephalic. EYES: Pupils equal and round and dilated at this time. No scleral icterus. No injection or drainage. ENT: Mucosa pink and moist. Airway patent. NECK: Trachea midline. CARDIOVASCULAR: Regular rate. RESPIRATORY: No accessory muscle use. GASTROINTESTINAL: Rounded. MUSCULOSKELETAL: No obvious deformities. No clubbing. No cyanosis. No edema. NEUROLOGICAL: Awake and alert. Oriented 3. No obvious cranial nerve deficits. Motor grossly within normal limits. Normal speech. PSYCHIATRIC: Appropriate mood and affect; insight and judgment normal. Data Data Last Documented VS Vital Signs Date Time Temp Pulse Resp B/P (MAP) Pulse Ox O2 Delivery O2 Flow Rate FiO2 07/18/17 11:36 97.8 78 14 182/97 (125) 97 Orders Orders Basic Metabolic Panel (Bmp) (07/18/17 13:32) Complete Blood Count With Diff (07/18/17 13:32) Prothrombin Time / Inr (Pt) (07/18/17 13:32) Act Partial Throm Time (Ptt) (07/18/17 13:32) Iv Access Insert/Monitor (07/18/17 13:32) NPO (07/18/17 13:32) Sodium Chloride 0.9% Flush (Ns Flush) (07/18/17 13:45) Consult Ophthalmology (07/18/17 ) Place In Observation (07/18/17 ) Vital Signs (Adult) Q4H (07/18/17 13:52) Activity Bed Rest (07/18/17 13:52) Diet Npo (07/18/17 Lunch) Admit Order (Ed Use Only) (07/18/17 13:51) MDM Medical Decision Making Medical Screen Exam Complete: Yes Emergency Medical Condition: Yes Medical Record Reviewed: Yes Differential Diagnosis Detached retina Narrative Course 56-year-old male sent by Dr. Burgess, director of clinical services to be admitted for surgery for suspected detach retina. Call placed to Dr. Burgess, director of clinical services. 1330: I talked to Dr. Burgess, director of clinical services, and he is recommending the patient to be admitted for surgery tonight. He would like us CBC, BMP, and coags drawn. He will fax and preop orders. He would like patient admitted to medical with a consult to him. Orders entered. Call placed to admit Ruth Ann 1353: Spoke with Dr. Chen, resident M.DJone and report was given for admission. Physician Communication Physician Communication Dr. Burgess, director of clinical services; Dr. Chen, Resident MD Diagnosis Primary Impression: Detached retina, right Admitting Information Admitting Physician Requests: Observation Scripts No Active Prescriptions or Reported Meds Kelli Beatty Jul 18, 2017 13:31
[2017-07-18] MEDS ORDERED: SODIUM CHLORIDE 0.9% FLUSH 10 ML FLUSH IV FLUSH PRN ×2 (13:45→15:00)
--- NOTE | 2017-07-18 14:34 | HHI.HP ---
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 Patient states he had blurry vision of his right eye starting about 3 weeks ago and was seen in the ED at that time as well. He endorses seeing "black hairs" and black dots in his vision about 3 weeks ago as well which lasted for a week. This has since resolved but he has continued to have blurry vision with his right eye. He states the vision in his left eye when he closes his right eye has been fine. He denies eye pain or double vision. He also reports seeing an aleksandra hue color with his right eye over this past 3 weeks. He denies any trauma or history of trauma to the eye. He denies any falls recently. Denies gait disturbances, headaches, N/V, changes in hearing. Patient was seen here in the ED on 2016 due to loss of vision of his right eye. An MRI of his orbits at that time were obtained which were normal. Patient was given choices at this visit of being transferred to a different center to [place] or [place] but declined and states he wanted to be discharged to / with ophthalmology as an outpatient. Patient states the first time he has seen Dr. Burgess was earlier today. (Bert Montemayor MD R2) Review of Systems Constitutional: DENIES: Fever, Chills, Dizziness Eyes: COMPLAINS OF: Blurred vision, DENIES: Diplopia, Eye pain, Double Vision Ears, nose, mouth, throat: DENIES: Tinnitus Respiratory: DENIES: Cough, Wheezing, Shortness of breath Cardiovascular: DENIES: Chest pain, Palpitations, Lower Extremity Edema Gastrointestinal: DENIES: Abdominal pain, Constipation, Diarrhea, Nausea, Vomiting Genitourinary: DENIES: Hematuria, Dysuria Neurologic: DENIES: Abnormal gait, Headache, Localized weakness (Bert Montemayor MD R2) Past Family Social History Past Medical History Amblyopia as a child Past Surgical History Corrective eye surgery as a child for amblyopia L kneecap surgery ~1998 ORIF of right distal tibia and fibula fractures on 03/29/2017 (Bert Montemayor MD R2) Allergies: Coded Allergies: bee venom protein (honey bee) (Unverified Allergy, Severe, Anaphylaxis, ) penicillin G (Unverified Allergy, Unknown, 06/27/17) Family History Mother: still alive, 74 yo, healthy Father: HTN, still alive, 77 yo Social History Tobacco: 1/2 PPD for about 40 years Etoh: denies in the past 6 months, denies any history of heavy drinking Illicit drug use: denies Lives alone (Bert Montemayor MD R2) Physical Exam Vital Signs Vital Signs Date Time Temp Pulse Resp B/P (MAP) Pulse Ox O2 Delivery O2 Flow Rate FiO2 07/18/17 11:36 97.8 78 14 182/97 (125 97 Physical Exam GENERAL: NAD, lying comfortably in bed NEURO: Alert. Normal speech. With exception of eyes due to pupils being dilated , rip sawyer tested and intact. Motor grossly normal. Strength 5/5 throughout. Sensation intact to light touch. SKIN: Warm and dry. No rashes or erythema. HEAD: Normocephalic. Atraumatic. EYES: Pupils dilated, equal round and reactive to light and accommodation. EOMI. Able to make out objects placed in front of his face however not always able to identify number of fingers being held up. No injection or drainage. Conjunctive white. No obvious abnormality seen on funduscopic examination bilaterally. ENT: No nasal drainage. Moist mucous membranes. No oral ulcers or lesions. NECK: Supple, trachea midline. No JVD. CARDIOVASCULAR: Regular rate and rhythm without murmurs, rubs, or gallops. Peripheral pulses 2+. Capillary refill < 2 seconds. RESPIRATORY: Breath sounds clear to auscultation and equal bilaterally, without wheezes, rales, or rhonchi. No accessory muscle use. GASTROINTESTINAL: Abdomen soft, nontender, nondistended, normal BS. MUSCULOSKELETAL: No lower extremity edema. Normal range of motion. BACK: Nontender without obvious deformity. (Bert Montemayor MD R2) Caprini VTE Risk Assessment Caprini VTE Risk Assessment: No/Low Risk (score <= 1) Caprini Risk Assessment Model Point Value = 1 Point Value = 2 Point Value = 3 Point Value = 5 Age 41-60 Minor surgery BMI > 25 kg/m2 Swollen legs Varicose veins or History of unexplained or recurrent spontaneous Oral contraceptives or hormone replacement Sepsis (< 1 month) Serious lung disease, including pneumonia (< 1 month) Abnormal pulmonary function Acute myocardial infarction Congestive heart failure (< 1 month) History of inflammatory bowel disease Medical patient at bed rest Age 61-74 Arthroscopic surgery Major open surgery (> 45 min) Laparoscopic surgery (> 45 min) Malignancy Confined to bed (> 72 hours) Immobilizing plaster cast Central venous access Age >= 75 History of VTE Family history of VTE Factor V Leiden Prothrombin [id number] Lupus anticoagulant Anticardiolipin antibodies Elevated serum homocysteine Heparin-induced thrombocytopenia Other congenital or acquired thrombophilia Stroke (< 1 month) Elective arthroplasty Hip, pelvis, or leg fracture Acute spinal cord injury (< 1 month) Prophylaxis Regimen Total Risk Factor Score Risk Level Prophylaxis Regimen 0-1 Low Early ambulation 2 Moderate Order ONE of the following: *Sequential Compression Device (SCD) *Heparin 5000 units SQ BID 3-4 Higher Order ONE of the following medications: *Heparin 5000 units SQ TID *Enoxaparin/Lovenox 40 mg SQ daily (WT < 150 kg, CrCl > 30 mL/min) *Enoxaparin/Lovenox 30 mg SQ daily (WT < 150 kg, CrCl > 10-29 mL/min) *Enoxaparin/Lovenox 30 mg SQ BID (WT < 150 kg, CrCl > 30 mL/min) AND/OR *Sequential Compression Device (SCD) 5 or more Highest Order ONE of the following medications: *Heparin 5000 units SQ TID (Preferred with Epidurals) *Enoxaparin/Lovenox 40 mg SQ daily (WT < 150 kg, CrCl > 30 mL/min) *Enoxaparin/Lovenox 30 mg SQ daily (WT < 150 kg, CrCl > 10-29 mL/min) *Enoxaparin/Lovenox 30 mg SQ BID (WT < 150 kg, CrCl > 30 mL/min) AND *Sequential Compression Device (SCD) (Bert Montemayor MD R2) Assessment and Plan Assessment and Plan 56 year old man being admitted for possible retinal detachment. Dr. Burgess, ophthalmology has been consulted and advised patient to be kept NPO ahead of surgery today. Code Status Full code Discussed Condition With Dr. Gabbie Anton (Bert Montemayor MD R2) Attending Attestation THIS CASE WAS DISCUSSED WITH THE RESIDENT PHYSICIANS. I HAVE REVIEWED THE RECORD AND AGREE WITH THE ABOVE NOTE AND PLAN OF CARE WAS DISCUSSED. I HAVE AUTHORIZED THE ORDER FOR ADMISSION TO AN IN-PATIENT STATUS. (Felisa Galvin MD) Problem List: (1) Retinal detachment ICD Codes: H33.20 - Serous retinal detachment, unspecified eye Status: Acute Plan: - Ophthalmology consulted, Dr. Burgess recommending patient to be admitted for surgery tonight - Follow cbc, cmp, coags pre-op - Patient may have had possible central retinal artery occlusion based on earlier symptoms at his prior ED visit as he had painless loss of vision of his right eye with possibly retinal whitening however patients symptoms have not significantly worsened over the past 3 weeks - Patient is reporting cobweb like floaters and blurry vision with no complete loss of vision so this may rather be a picture of retinal detachment - Will follow ophthalmology recommendations - If patient did have CRAO occlusion, would recommend atherosclerosis risk factor modification and antiplatelet therapy and close follow up with a PCP as an outpatient - Will keep patient NPO ahead of surgery - NS at 125 cc/hr (2) Hypertension ICD Codes: I10 - Essential (primary) hypertension Status: Acute Plan: BP 182/97 on admission Hydralazine 10 mg IV q6h prn BP > 180 Consider oral antihypertensive once able to take PO after surgery (3) Nutrition, metabolism, and development symptoms ICD Codes: R63.8 - Other symptoms and signs concerning food and fluid intake Status: Acute Plan: Fluids: NS at 125 cc/hr Electrolytes: pending, will follow Nutrition: NPO DVT ppx: b/l SCDs Will check hemoglobin A1c given patient with no current PCP (Bert Montemayor MD R2) Physician Certification 2 Midnight Certification Type: Admission for Inpatient Services Order for Inpatient Services The services are ordered in accordance with Medicare regulations or non- Medicare payer requirements, as applicable. In the case of services not specified as inpatient-only, they are appropriately provided as inpatient services in accordance with the 2-midnight benchmark. Estimated LOS (days): 2 days is the estimated time the patient will need to remain in the hospital, assuming treatment plan goals are met and no additional complications. Post-Hospital Plan: Home (Bert Montemayor MD R2) 2 Midnight Certification Type: Admission for Inpatient Services Post-Hospital Plan: Home (Felisa Galvin MD) Bert Montemayor MD R2 Jul 18, 2017 14:34 Felisa Galvin MD Jul 19, 2017 14:12
[2017-07-18] MEDS ORDERED: GLYCOPYRROLATE 1 MG/5 ML SYRINGE IV PUSH ONE (14:39)
[2017-07-18] MEDS ORDERED: ONDANSETRON HCL 4 MG/2 ML VIAL IV PUSH ONE (14:39)
[2017-07-18] MEDS ORDERED: MIDAZOLAM HCL 2 MG/2 ML VIAL IV ONE (14:39)
[2017-07-18] MEDS ORDERED: DEXAMETHASONE SOD PHOS 4 MG/ML VIAL IV ONE (14:39)
[2017-07-18] MEDS ORDERED: LIDOCAINE HCL 1% PF 5 ML AMPULE OTHER ONE (14:39)
[2017-07-18] MEDS ORDERED: ePHEDrine/NS 25 MG/5 ML SYR IV ONE (14:39)
[2017-07-18] MEDS ORDERED: PROPOFOL 200 MG/20 ML AMP IV ONE (14:39)
[2017-07-18] MEDS ORDERED: NALOXONE HCL 0.4 MG/ML AMP IV PUSH PRN (15:00)
[2017-07-18] MEDS ORDERED: SODIUM CHLOR 0.9% 1000 ML INJ 1,000 ML IV SCH (15:00)
[2017-07-18 15:21] VITALS: BP 183/96; PULSE 54; RESP 16; O2SAT 93
[2017-07-18] MEDS ORDERED: STERILE WATER FOR INJECTION 20 ML VIAL ONE (15:58)
[2017-07-18] MEDS ORDERED: ceFAZolin INJ 1,000 MG VIAL ONE (15:59)
[2017-07-18] MEDS ORDERED: ATROPINE SULFATE 1% OPHT SOLN 2 ML BTL ONE ×2 (15:59→16:35)
[2017-07-18] MEDS ORDERED: BALANCED SALT SOLN OPHT IRRIG 15 ML BTL ONE (15:59)
[2017-07-18] MEDS ORDERED: TRIAMCINOLONE ACETONIDE 40 MG/ML VIAL ONE (15:59)
[2017-07-18] MEDS ORDERED: DEXAMETHASONE SOD PHOS 4 MG/ML VIAL ONE (15:59)
[2017-07-18] MEDS ORDERED: TOBRAMYCIN/DEXAMETHASONE OPTH OINT 3.5 GM TUBE ONE (15:59)
[2017-07-18] MEDS ORDERED: EPINEPHrine HCL (1:1000) 1 MG/ML VIAL ONE (16:00)
[2017-07-18] MEDS ORDERED: TROPICAMIDE 1% OPHT SOLN 15 ML BTL ONE (16:35)
[2017-07-18] MEDS ORDERED: CYCLOPENTOLATE HCL 1% OPHT SOLN 2 ML BTL ONE ×2 (16:35→16:37)
[2017-07-18] MEDS ORDERED: PHENYLEPHRINE HCL 2.5% OPTH SOLN 2 ML BTL ONE (16:36)
[2017-07-18 17:15] LABS: HEMOGLOBIN A1a 0.8 %; HEMOGLOBIN A1b 1.4 %; HEMOGLOBIN Ao 86.8 %; HEMOGLOBIN LA1C 1.8 %; HEMOGLOBIN P3 3.5 %
[2017-07-18] MEDS ORDERED: prednisoLONE ACETATE 1% OPHT SUSP 5 ML BTL RIGHT EYE ONE (17:30)
[2017-07-18] MEDS ORDERED: MOXIFLOXACIN 0.5% OPHT SOLN 3 ML BTL RIGHT EYE ONE (17:30)
[2017-07-18] MEDS ORDERED: hydrALAZINE HCL 20 MG/ML VIAL IV PUSH PRN (18:15)
[2017-07-18] MEDS ORDERED: DO NOT ADM ANY ANTICOAGULANT DRUGS PRN (19:15)
[2017-07-18] MEDS ORDERED: ACETAMINOPHEN 500 MG CPLT PO PRN (19:30)
--- NOTE | 2017-07-18 19:39 | HHI.DCPOC ---
Discharge Care Plan Diagnosis: (1) Retinal detachment (2) Hypertension (3) Nutrition, metabolism, and development symptoms Goals to Promote Your Health * To prevent worsening of your condition and complications * To maintain your health at the optimal level Directions to Meet Your Goals Take your medications as prescribed Follow your dietary instruction Follow activity as directed Keep your appointments as scheduled Take your immunizations and boosters as scheduled If your symptoms worsen call your PCP, if no PCP go to Urgent Care Center or Emergency Room Smoking is Dangerous to Your Health. Avoid second hand smoke Call the 24-hour hour crisis hotline for domestic abuse at Adan Henry MD, R3 Jul 18, 2017 19:39
[2017-07-18] MEDS ORDERED: VIGA0.5D RIGHT EYE (19:50)
[2017-07-18] MEDS ORDERED: PRED1SUS RIGHT EYE (20:53)
[2017-07-18] MEDS ORDERED: ATRO1SOL11 RIGHT EYE (20:55)
[2017-07-18] MEDS ORDERED: prednisoLONE ACETATE 1% OPHT SUSP 5 ML BTL RIGHT EYE SCH (21:00)
[2017-07-18] MEDS ORDERED: ATROPINE SULFATE 1% OPHT SOLN 2 ML BTL RIGHT EYE SCH (21:00)
[2017-07-18] MEDS ORDERED: MOXIFLOXACIN 0.5% OPHT SOLN 3 ML BTL RIGHT EYE SCH (21:00)
[2017-07-18] MEDS ORDERED: SODIUM CHLORIDE 0.9% FLUSH 10 ML FLUSH IV FLUSH SCH (21:00)
[2017-07-18 21:09] VITALS: BP 147/87; PULSE 58; RESP 15; TEMP 97.8; O2SAT 95
[2017-07-18] MEDS ORDERED: TYLE325T PO (21:21)
--- NOTE | 2017-07-19 23:23 | MP ---
cc: ARNOLDO NAGY DATE OF SURGERY 07/19/17 POSTOPERATIVE DIAGNOSIS Vitreous hemorrhage, neovascularization, retinal traction, right eye. PROCEDURE Pars vitrectomy, endolaser, air-fluid exchange, removal of fibrotic membrane, right eye. COMPLICATIONS None BLOOD LOSS Less than [address] [place] general INDICATIONS FOR PROCEDURE This delightful patient presented with a non-clearing vitreous hemorrhage of his right eye. Initial examination revealed an area of the neovascularization extending from the optic disk with fibrotic complex and which was applying traction on the surrounding retina. The patient elected for surgical correction understanding risks, benefits and alternatives. The patient understands the vision may be limited by vascular changes and retinal changes. PROCEDURE NOTE Informed consent was obtained. The patient brought to operating room. General anesthesia was established. The right eye was prepped and draped in sterile fashion with Betadine in the conjunctival fornix. A deep three port pars vitrectomy was established with self-retaining infusion cannula. Core vitreous and vitreous hemorrhage was evacuated. The fibrotic membrane and neovascularization was circumscribed from the surrounding vitreous. The sub____ membrane was removed carefully using the vitrector. The inferior arcade appeared sclerotic. Scleral depression examination revealed a superonasal retinal tear that was a localized retinal detachment. This area was treated with endolaser and __ peripheral retina with areas of internal hemorrhage also treated with endolaser. Air-fluid exchange was carried out. Trocars removed and sclerotomies closed with several Vicryl suture. Conjunctiva was reapproximated with 6-0 plain gut. Subconjunctival injection of Ancef and dexamethasone were given. The eye was patched with Tobramycin ointment. The patient was brought to recovery room in stable condition. Will continue followup with [facility] for his postoperative care. MD KYUNG Romero/ /3:37 PM /11:11 PM
== END 2017-07-18 21:40 | disposition home or self-care (01) ==
LOC: NEPK 11:34 → NEDA 13:53 → UNDODEPER 07-19 00:25
PROVIDERS: ADMIT Family Medicine; ATTEND Family Medicine
DX: H43.11 Vitreous hemorrhage, right eye (principal); H35.051 Retinal neovascularization, unspecified, right eye; I10 Essential (primary) hypertension; Z86.73 Personal history of transient ischemic attack (TIA), and cerebral infarction without residual deficits; F17.210 Nicotine dependence, cigarettes, uncomplicated; Z79.899 Other long term (current) drug therapy
CPT/HCPCS: 00145; 67043; 83036; 99285; G0378; J0171; J0690; J1100; J2250; J2405; J3010; J3301